=== PATIENT | female | born 1970 | race Two or more races ===

== ENCOUNTER 2025-10-01 13:50 | Outpatient (CLI) | payer OTHER | END 2025-10-01 13:53 | disposition home or self-care (01) | LOC: SONOGRAMA 13:50 | PROVIDERS: ATTEND General Practice | DX: E06.3 Autoimmune thyroiditis (principal); E04.2 Nontoxic multinodular goiter; E55.9 Vitamin D deficiency, unspecified; E56.8 Deficiency of other vitamins; E78.2 Mixed hyperlipidemia ==